=== PATIENT | female | born 1990 | race Caucasian/White ===

== ENCOUNTER 2017-08-04 11:00 | Day surgery (SDC) | payer BC ==
[2017-07-28 15:02] VITALS: BP 137/77
[~2017-08-04] VITALS: Ht 175.3 cm; Wt 62.3 kg
[~2017-08-04 11:00] MED LIST: BUPIVACAINE/PF 0.25% ONE; MAGN250T8 PO; MULT-224 PO; ROCURONIUM 10 MG/ML,10ML ONE
[2017-08-04] MEDS ORDERED: LACTATED RINGERS 1,000 ML IV SCH (11:56)
[2017-08-04] MEDS ORDERED: OxyconTIN ER 10 MG TAB.ER PO ONE (12:00)
[2017-08-04] MEDS ORDERED: GABAPENTIN 300 MG CAPSULE PO SCH (12:00)
[2017-08-04] MEDS ORDERED: ACETAMINOPHEN 500 MG TABLET PO ONE (12:00)
[2017-08-04 12:24] LABS: BASOPHILS # (AUTO) 0.02 x10^3/uL (0-0.1); BASOPHILS % (AUTO) 0 % (0-1); EOSINOPHILS # (AUTO) 0.03 x10^3/uL (0-0.4); EOSINOPHILS % (AUTO) 1 % (1-7); LYMPHOCYTES # (AUTO) 1.27 x10^3/uL (1-3.4); LYMPHOCYTES % (AUTO) 23 % (22-44); MD NO; MEAN CORPUSCULAR HEMOGLOBIN 29.1 pg (27.0-34.8); MEAN CORPUSCULAR HGB CONC 33.4 g/dL (32.4-35.8); MEAN CORPUSCULAR VOLUME 87.1 fL (80-100); MEAN PLATELET VOLUME 9.1 fL (7.4-10.4); MONOCYTES # (AUTO) 0.45 x10^3/uL (0.2-0.8); MONOCYTES % (AUTO) 8 % (2-9); NEUTROPHILS % (AUTO) 68 % (42-75); PLATELET COUNT 245 x10^3/uL (130-400); RED BLOOD COUNT 4.35 x10^6/uL (3.82-5.3); RED CELL DISTRIBUTION WIDTH 13.2 % (9.6-15.2)
[2017-08-04 12:31] LABS: INTERNATIONAL NORMALIZED RATIO 1.1 (0.93-1.1); PROTHROMBIN TIME 11.3 Seconds (9.6-11.5)
[2017-08-04 12:35] LABS: ALANINE AMINOTRANSFERASE 22 U/L (12-78); ALBUMIN 4.3 g/dL (3.4-5.0); ANION GAP 8 mmol/L (5-15); CALCIUM 8.7 mg/dL (8.5-10.1); CHLORIDE 109 mmol/L (98-107); CREATININE 0.74 mg/dL (0.55-1.02)
[2017-08-04 12:38] LABS: ALKALINE PHOSPHATASE 64 U/L (45-117); BILIRUBIN,TOTAL 0.7 mg/dL (0.2-1.0); TOTAL PROTEIN 7.4 g/dL (6.4-8.2)
[2017-08-04] MEDS ORDERED: FENTANYL PF 250 MCG/5ML ONE (12:42)
[2017-08-04] MEDS ORDERED: MIDAZOLAM 1 MG/ML, 2ML ONE (12:42)
[2017-08-04] MEDS ORDERED: GLYCOPYRROLATE 0.2MG/1ML, 5ML ONE ×2 (12:43→12:45)
[2017-08-04] MEDS ORDERED: ONDANSETRON 2MG/ML, 2ML ONE (12:43)
[2017-08-04] MEDS ORDERED: SUCCINYLCHOLINE 20 MG/ML, 10ML ONE (12:43)
[2017-08-04] MEDS ORDERED: PROPOFOL 10 MG/ML, 20ML ONE (12:43)
[2017-08-04] MEDS ORDERED: NEOSTIGMINE 1 MG/ML, 10ML ONE (12:43)
[2017-08-04] MEDS ORDERED: DEXAMETHASONE 4 MG/ML, 1ML ONE (12:43)
[2017-08-04] MEDS ORDERED: CEFAZOLIN 1,000 MG ONE (12:43)
[2017-08-04] MEDS ORDERED: LIDOCAINE 4%, 4 ML SYR/CANN TP ONE (12:44)
[2017-08-04] MEDS ORDERED: PROPOFOL 100 ML ONE (13:42)
[2017-08-04] MEDS ORDERED: FENTANYL PF 100 MCG/2ML ONE (15:31)
[2017-08-04] MEDS: FENTANYL PF 100 MCG/2ML IV PRN ×2 (15:33→15:39)
[2017-08-04] MEDS ORDERED: HYDROmorphone 2 MG/ML, 1ML ONE (15:40)
[2017-08-04] MEDS: HYDROmorphone 1 MG/ML, 1ML IV PRN ×2 (15:43→16:00)
[2017-08-04] MEDS ORDERED: OXYcodone 5 MG/5 ML ORAL.SOL UDC PO PRN ×2 (16:00)
[2017-08-04] MEDS ORDERED: FENTANYL PF 100 MCG/2ML IV PRN (16:00)
[2017-08-04] MEDS ORDERED: morphine SULFATE 10 MG/ML, 1ML IV PRN ×2 (16:00)
[2017-08-04] MEDS ORDERED: PROMETHAZINE 25 MG/ML, 1ML IV PRN (16:00)
[2017-08-04] MEDS ORDERED: MEPERIDINE/PF 25MG/0.5ML IVPush PRN (16:00)
[2017-08-04] MEDS ORDERED: ONDANSETRON 2MG/ML, 2ML IVPush PRN ×2 (16:00)
[2017-08-04] MEDS ORDERED: PROMETHAZINE 25 MG/ML, 1ML ONE (16:06)
[2017-08-04] MEDS ORDERED: KETOROLAC 30 MG/1 ML ONE (16:21)
[2017-08-04] MEDS ORDERED: KETOROLAC 30 MG/1 ML IVPush ONE (16:30)
[2017-08-04] MEDS ORDERED: OXYcodone/APAP 7.5/325MG TABLET PO ONE (18:00)
[2017-08-04] MEDS ORDERED: OXYcodone/APAP 7.5/325MG TABLET ONE (18:14)
== END 2017-08-04 18:15 ==
LOC: OUT 11:00
PROVIDERS: ATTEND Specialist
DX: N83.291 Other ovarian cyst, right side (principal); K73.9 Chronic hepatitis, unspecified; B17.9 Acute viral hepatitis, unspecified; N80.3 Endometriosis of pelvic peritoneum; Z90.710 Acquired absence of both cervix and uterus; Z98.51 Tubal ligation status; Z98.890 Other specified postprocedural states; Z72.89 Other problems related to lifestyle
CPT/HCPCS: 36415; 47379; 58661; 80053; 85025; 85610; 85730; 86850; 86900; 86923; 88305; 88307; 88313; 88341; 88342; J0330; J0690; J1100; J1170; J1885; J2250; J2405; J2550; J2704; J2710; J3010; J3490; J7120; G0461

== ENCOUNTER 2018-01-19 09:39 | Day surgery (SDC) | payer BC ==
[~2018-01-19] VITALS: Ht 175.3 cm; Wt 67.0 kg
[~2018-01-19 09:39] MED LIST changes: -BUPIVACAINE/PF 0.25% ONE; +BUPIVACAINE/PF-EPI 0.5% 1:200K ONE; -ROCURONIUM 10 MG/ML,10ML ONE
[2018-01-19] MEDS ORDERED: ONDANSETRON ODT 8 MG PO ONE (10:00)
[2018-01-19] MEDS ORDERED: ACETAMINOPHEN 500 MG TABLET PO ONE (10:00)
[2018-01-19] MEDS ORDERED: LACTATED RINGERS 1,000 ML IV SCH (10:01)
[2018-01-19 10:13] VITALS: BP 133/82
[2018-01-19] MEDS ORDERED: SCOPOLAMINE PATCH, 1.5MG PATCH.TD72 TD ONE ×2 (10:29→10:30)
[2018-01-19] MEDS ORDERED: SUCCINYLCHOLINE 20 MG/ML, 10ML ONE (11:44)
[2018-01-19] MEDS ORDERED: PROPOFOL 10 MG/ML, 20ML ONE (11:44)
[2018-01-19] MEDS ORDERED: LIDOCAINE-MPF 2% ,5ML ONE (11:44)
[2018-01-19] MEDS ORDERED: MIDAZOLAM 1 MG/ML, 2ML ONE ×2 (11:44→13:31)
[2018-01-19] MEDS ORDERED: FENTANYL PF 100 MCG/2ML ONE ×3 (11:44→13:23)
[2018-01-19] MEDS ORDERED: DEXAMETHASONE 4 MG/ML, 1ML ONE ×2 (12:16)
[2018-01-19] MEDS ORDERED: CEFAZOLIN 1,000 MG ONE ×2 (12:16)
[2018-01-19] MEDS ORDERED: hydrALAzine 20 MG/ML, 1ML IV PRN (13:00)
[2018-01-19] MEDS ORDERED: LORazepam 2 MG/ML, 1ML IVPush PRN (13:00)
[2018-01-19] MEDS ORDERED: LABETALOL 5MG/ML, 20ML IV PRN (13:00)
[2018-01-19] MEDS ORDERED: EPHEDRINE 50 MG/ML, 1ML IVPush PRN (13:00)
[2018-01-19] MEDS ORDERED: PROCHLORPERAZINE 5 MG/ML, 2ML IV PRN (13:00)
[2018-01-19] MEDS ORDERED: OXYcodone 5 MG/5 ML ORAL.SOL UDC PO PRN (13:00)
[2018-01-19] MEDS ORDERED: ALBUTEROL SULFATE 2.5 MG/3 ML NPPB PRN (13:00)
[2018-01-19] MEDS ORDERED: MORPHINE SULFATE 4 MG/ML, 1ML IVPush PRN (13:00)
[2018-01-19] MEDS ORDERED: METOPROLOL 1 MG/ML, 5ML IV PRN (13:00)
[2018-01-19] MEDS ORDERED: DIPHENHYDRAMINE 50 MG/ML, 1ML IVPush PRN (13:00)
[2018-01-19] MEDS ORDERED: MEPERIDINE/PF 25MG/0.5ML IVPush PRN (13:00)
[2018-01-19] MEDS ORDERED: DIAZEPAM 5 MG/ML, 2ML IVPush PRN (13:00)
[2018-01-19] MEDS ORDERED: OXYcodone 5 MG/5 ML ORAL.SOL UDC ONE (13:13)
[2018-01-19] MEDS: FENTANYL PF 100 MCG/2ML IV PRN ×4 (13:17→13:34)
[2018-01-19] MEDS ORDERED: HYDROmorphone 2 MG/ML, 1ML ONE (13:23)
[2018-01-19] MEDS: HYDROmorphone 1 MG/ML, 1ML IV PRN ×4 (13:26→13:54)
[2018-01-19] MEDS: MIDAZOLAM 1 MG/ML, 2ML IV PRN ×2 (13:33→13:46)
== END 2018-01-19 15:20 | disposition home or self-care (01) ==
LOC: OUT 09:39
PROVIDERS: ATTEND Surgery
DX: K81.1 Chronic cholecystitis (principal); K21.9 Gastro-esophageal reflux disease without esophagitis; Z98.890 Other specified postprocedural states; Z90.710 Acquired absence of both cervix and uterus
CPT/HCPCS: 47562; 88304; C1765; J0330; J0690; J1100; J1170; J2060; J2250; J2704; J3010; J3490; J7120; Q0162

== ENCOUNTER 2018-01-24 17:26 | Emergency (ER) | payer BC ==
[~2018-01-24] VITALS: Ht 175.3 cm; Wt 65.6 kg
[~2018-01-24 17:26] MED LIST changes: -BUPIVACAINE/PF-EPI 0.5% 1:200K ONE
[2018-01-24] MEDS ORDERED: OMNIPAQUE 350 MG/ML, 100ML BOTTLE ONE (18:20)
[2018-01-24] MEDS ORDERED: MORPHINE SULFATE 4 MG/ML, 1ML IVPush PRN (18:30)
[2018-01-24] MEDS ORDERED: ONDANSETRON 2MG/ML, 2ML IVPush ONE (18:30)
[2018-01-24] MEDS ORDERED: MORPHINE SULFATE 4 MG/ML, 1ML ONE (18:37)
[2018-01-24] MEDS ORDERED: ONDANSETRON 2MG/ML, 2ML ONE (18:37)
[2018-01-24 18:42] LABS: MD NO; MONOCYTES # (AUTO) 0.54 x10^3/uL (0.2-0.8); MONOCYTES % (AUTO) 7 % (2-9)
[2018-01-24 18:56] LABS: ALANINE AMINOTRANSFERASE 51 U/L (12-78); ALBUMIN 4.4 g/dL (3.4-5.0); ANION GAP 10 mmol/L (5-15); CALCIUM 9.6 mg/dL (8.5-10.1); CHLORIDE 106 mmol/L (98-107); CREATININE 0.76 mg/dL (0.55-1.02)
[2018-01-24 18:58] LABS: ALKALINE PHOSPHATASE 87 U/L (45-117); BILIRUBIN,TOTAL 0.5 mg/dL (0.2-1.0); TOTAL PROTEIN 8.1 g/dL (6.4-8.2)
[2018-01-24 19:13] LABS: BASOPHILS # (AUTO) 0.02 x10^3/uL (0-0.1); BASOPHILS % (AUTO) 0 % (0-1); EOSINOPHILS # (AUTO) 0.15 x10^3/uL (0-0.4); EOSINOPHILS % (AUTO) 2 % (1-7); LYMPHOCYTES # (AUTO) 1.68 x10^3/uL (1-3.4); LYMPHOCYTES % (AUTO) 23 % (22-44); MEAN CORPUSCULAR HEMOGLOBIN 29.7 pg (27.0-34.8); MEAN CORPUSCULAR HGB CONC 33.9 g/dL (32.4-35.8); MEAN CORPUSCULAR VOLUME 87.7 fL (80-100); MEAN PLATELET VOLUME 9.5 fL (7.4-10.4); NEUTROPHILS % (AUTO) 67 % (42-75); PLATELET COUNT 292 x10^3/uL (130-400); RED BLOOD COUNT 4.74 x10^6/uL (3.82-5.3); RED CELL DISTRIBUTION WIDTH 12.4 % (9.6-15.2)
[2018-01-24 21:19] LABS: CULTURE INDICATED? NO; MICROSCOPIC NOT IND
[2018-01-24 22:25] VITALS: BP 108/60
== END 2018-01-24 22:40 | disposition home or self-care (01) ==
LOC: ED 19:17
DX: A09 Infectious gastroenteritis and colitis, unspecified (principal); R19.7 Diarrhea, unspecified
CPT/HCPCS: 36415; 74177; 80053; 81003; 83690; 85025; 96374; 96375; 99285; J2405; Q9967